=== PATIENT | female | born 1965 | race Caucasian/White ===

== ENCOUNTER 2017-06-15 20:59 | Inpatient (IN) | payer OTHER ==
[~2017-06-15] VITALS: Ht 165.1 cm; Wt 150.0 kg
[~2017-06-15 20:59] MED LIST: ADV25050 INHALATION; ALBU18HF INHALATION; AMLO-147 PO; CHOL100016 PO; ENOX30DI2 SC; GABA300C16 PO; HYDR25TA6 PO; HYDR2TAB3 PO; LANT3I SC; LISI40TA9 PO; LORA-444 PO; MECL-77 PO; NOVO3I SC; OMEG-135 PO; OMEP20CA16 PO; PANT40TA4 PO; SITA50TA2 PO; TAMS0.4C2 PO; ZOLP10TA5 PO
[2017-06-15] MEDS ORDERED: ONDANSETRON 4 MG INJ IV STA (21:37)
[2017-06-15] MEDS ORDERED: SOD CHLORIDE 0.9% 1,000 ML IV STA (21:37)
--- NOTE | 2017-06-15 22:01 | RADRPT ---
PROCEDURE: XR Chest. CLINICAL INDICATION: Chest pain TECHNIQUE: Single AP portable chest. COMPARISON: 02/19/2016 Chest x-ray FINDINGS: The cardiomediastinal silhouette is within normal limits of size. Anterior and posterior cervical fu queenie. Chronic elevation right hemidiaphragm. Atherosclerotic calcification of the aorta. The lungs are clear without pleural effusion or focal consolidation. No pneumothorax. The osseous structures and soft tissues are unremarkable. IMPRESSION: 1. No evidence for active cardiopulmonary disease. RPTAT:AAJJ Asif Yeung Physician Date Time Electronically viewed and signed by Physician Huey on 06/15/2017 22:01 GABBI/
[2017-06-15 22:26] LABS: ABNORMAL IP MESSAGE 1; BASOPHILS % 0.3 % (0.0-2.0); EOSINOPHILS # 0.1 10^3/ul (0.0-0.5); EOSINOPHILS % 0.4 % (0.0-7.0); HEMATOCRIT 29.5 % (37.0-47.0); HEMOGLOBIN 9.1 g/dl (12.0-16.0); LYMPHOCYTES # 0.6 10^3/ul (0.8-2.9); MEAN CORPUSCULAR HEMOGLOBIN 25.2 pg (29.0-33.0); MEAN CORPUSCULAR HGB CONC 30.8 g/dl (32.0-37.0); MEAN CORPUSCULAR VOLUME 81.7 fl (82.0-101.0); MEAN PLATELET VOLUME 8.4 fl (7.4-10.4); MONOCYTE # 0.4 10^3/ul (0.3-0.9); MONOCYTES % 3.4 % (0.0-11.0); NEUTROPHILS % 90.1 % (39.0-77.0); PLATELET COUNT 289 10^3/UL (140-415); RED BLOOD COUNT 3.61 10^6/ul (4.20-5.40); WHITE BLOOD COUNT 11.1 10^3/ul (4.8-10.8)
[2017-06-15 22:27] LABS: POSITIVE DIFF @See below
[2017-06-15 22:47] LABS: ALANINE AMINOTRANSFERASE 29 IU/L (13-69); ALBUMIN/GLOBULIN RATIO 1.11; ALKALINE PHOSPHATASE 82 IU/L (42-121); ANION GAP 16 (8-16); ASPARTATE AMINO TRANSFERASE 23 IU/L (15-46); BILIRUBIN,INDIRECT 0.1 mg/dl (0-1.1); BILIRUBIN,TOTAL 0.1 mg/dl (0.2-1.3); BLOOD UREA NITROGEN 17 mg/dl (7-20); CALCIUM 9.3 mg/dl (8.4-10.2); CARBON DIOXIDE 29 mmol/L (21-31); CHLORIDE 96 mmol/L (97-110); CREATININE 0.83 mg/dl (0.44-1.00); GLUCOSE 194 mg/dl (70-220); POTASSIUM 4.4 mmol/L (3.5-5.1); SODIUM 137 mmol/L (135-144); TOTAL PROTEIN 7.6 g/dl (6.1-8.1)
[2017-06-15 22:59] LABS: B-TYPE NATRIURETIC PEPTIDE 1250 PG/ML (0-125); TROPONIN-I < 0.012 ng/ml (0.00-0.12)
--- NOTE | 2017-06-15 23:21 | ERD ---
ER Documentation Chief Complaint Chief Complaint bib self, cc: "i stopped taking dilaudid yesterday, I want to vomit, CP" HPI This is a 52-year-old female with a chief complaint of chest pain. The patient states that she has had chest pain for the past 5 hours and localizes it to the center of her chest and describes as a pressure-like sensation with mild shortness of breath. She denies any radiation of the pain, and states that she came to the ER for evaluation. The patient states "I was at another hospital last week but I do not know what hospital it was and I do not know why it was there" as patient is a very poor historian ROS All systems reviewed and are negative except as per history of present illness. Medications Home Meds Active Scripts Pantoprazole* (Pantoprazole*) 40 Mg Tablet.dr, 40 MG PO DAILY@06 for 30 Days Prov:DELMI JOSEPH NP 02/20/16 Insulin Glargine* (Lantus*) 100 Unit/Ml Soln, 15 UNIT SC QHS for 30 Days Prov:DELMI JOSEPH NP 02/20/16 Enoxaparin Sodium* (Enoxaparin Sodium*) 30 Mg/0.3 Ml Syringe, 30 MG SC DAILY for 30 Days Prov:DELMI JOSEPH NP 02/20/16 Insulin Aspart* (Novolog Insulin Pen*) 100 Unit/Ml Soln, 0 UNIT SC WITH MEALS BEDTIME for 30 Days Prov:PATRICIA JUARES 02/17/16 Albuterol Sulfate* (Ventolin HFA*) 18 Gm Hfa.aer.ad, 2 PUFF INHALATION Q4H, #1 INHALER Prov:GUICHO SHEIKH 02/15/16 Reported Medications Salmeterol Xinaf/Fluticasone* (Advair*) 250-50 Diskus Inhaler, 1 INH INHALATION BID, #1 INHALER 02/15/16 Lorazepam* (Ativan*) 2 Mg Tablet, 4 MG PO HS Y for SIZUR, #60 TAB 02/15/16 Zolpidem Tartrate* (Zolpidem Tartrate*) 10 Mg Tablet, 10 MG PO QHS Y for INSOMNIA, #30 TAB 02/15/16 Hydrochlorothiazide* (Hydrochlorothiazide*) 25 Mg Tab, 25 MG PO DAILY, #30 TAB 02/15/16 Fish Oil* (Fish Oil*) 1,000 Mg Cap, 3000 MG PO DAILY, CAP 02/15/16 Gabapentin* (Gabapentin*) 300 Mg Capsule, 900 MG PO TID, #270 CAP 02/14/16 Tamsulosin Hcl* (Tamsulosin Hcl*) 0.4 Mg Cap.er.24h, 0.4 MG PO DAILY, CAP 02/14/16 Lisinopril* (Lisinopril*) 40 Mg Tablet, 40 MG PO DAILY, #30 TAB 02/14/16 Sitagliptin* (Januvia*) 50 Mg Tablet, 50 MG PO DAILY, #30 TAB 02/14/16 Meclizine Hcl* (Meclizine Hcl*) 25 Mg Tablet, 25 MG PO BID Y for DIZZINESS, TAB 02/14/16 Omeprazole* (Omeprazole*) 20 Mg Capsule.dr, 20 MG PO DAILY, #30 CAP 02/14/16 Amlodipine Besylate* (Amlodipine Besylate*) 10 Mg Tablet, 10 MG PO DAILY, #30 TAB 02/14/16 Cholecalciferol (Vitamin D3) 1,000 Unit Capsule, 1000 UNIT PO DAILY, CAP 02/14/16 Hydromorphone Hcl* (Hydromorphone Hcl*) 2 Mg Tablet, 2 MG PO BID Y for PAIN, TAB 02/14/16 Allergies Allergies: Coded Allergies: diphenhydramine (Unverified Allergy, Mild, 02/17/16) PMhx/Soc History of Surgery: Yes (cervical sx,cholecystectomy,ovarian cyst removal) Anesthesia Reaction: No Hx Neurological Disorder: Yes (NEUROPATHY;) Hx Respiratory Disorders: Yes (PER PT SOME PULMONARY BLOCAGE;SLEEP APNEA;) Hx Cardiac Disorders: Yes (HTN;) Hx Psychiatric Problems: No Hx Miscellaneous Medical Probl: No Hx Alcohol Use: No Hx Substance Use: No Hx Tobacco Use: No Physical Exam Vitals Vital Signs Date Time Temp Pulse Resp B/P Pulse Ox O2 Delivery O2 Flow Rate FiO2 06/15/17 21:06 98.5 102 18 174/83 94 Physical Exam Const: No acute distress, morbidly obese Head: Atraumatic Eyes: Normal Conjunctiva ENT: Normal External Ears, Nose and Mouth. Neck: Full range of motion..~ No meningismus. Resp: Clear to auscultation bilaterally Cardio: Regular rate and rhythm, no murmurs Abd: Soft, non tender, non distended. Normal bowel sounds Skin: No petechiae or rashes Back: No midline or flank tenderness Ext: No cyanosis, or edema Neur: Awake and alert Psych: Mild agitation Result Diagram: 06/15/17221606/15/172216 Results 24 hrs Laboratory Tests Test 06/15/17 22:17 White Blood Count 11.110^3/ul Red Blood Count 3.6110^6/ul Hemoglobin 9.1g/dl Hematocrit 29.5% Mean Corpuscular Volume 81.7fl Mean Corpuscular Hemoglobin 25.2pg Mean Corpuscular Hemoglobin Concent 30.8g/dl Red Cell Distribution Width 16.0% Platelet Count 33528^3/UL Mean Platelet Volume 8.4fl Neutrophils % 90.1% Lymphocytes % 5.0% Monocytes % 3.4% Eosinophils % 0.4% Basophils % 0.3% Nucleated Red Blood Cells % 0.0/100WBC Neutrophils # 10.010^3/ul Lymphocytes # 0.610^3/ul Monocytes # 0.410^3/ul Eosinophils # 0.110^3/ul Basophils # 0.010^3/ul Nucleated Red Blood Cells # 0.010^3/ul Sodium Level 137mmol/L Potassium Level 4.4mmol/L Chloride Level 96mmol/L Carbon Dioxide Level 29mmol/L Anion Gap 16 Blood Urea Nitrogen 17mg/dl Creatinine 0.83mg/dl Glucose Level 194mg/dl Calcium Level 9.3mg/dl Total Bilirubin 0.1mg/dl Direct Bilirubin 0.00mg/dl Indirect Bilirubin 0.1mg/dl Aspartate Amino Transf (AST/SGOT) 23IU/L Alanine Aminotransferase (ALT/SGPT) 29IU/L Alkaline Phosphatase 82IU/L Troponin I < 0.012ng/ml B-Type Natriuretic Peptide 1250PG/ML Total Protein 7.6g/dl Albumin 4.0g/dl Globulin 3.60g/dl Albumin/Globulin Ratio 1.11 Current Medications Medications (Trade) Dose Ordered Sig/Kaz Route PRN Reason Start Time Stop Time Status Last Admin Dose Admin Sodium Chloride (NS) 1,000 ml @ 1,000 mls/hr Q1H STAT IV 06/15/17 21:37 06/15/17 22:36 DC 06/15/17 21:55 Ondansetron HCl (Zofran Inj) 4 mg ONCE STAT IV 06/15/17 21:37 06/15/17 21:38 DC 06/15/17 21:53 Procedures/MDM EKG: Rate/Rhythm: [Normal Sinus Rhythm] QRS, ST, T-waves: [No changes consistent w/ acute ischemia] Impression: [No evidence of ischemia or arrhythmia] Chest X-ray 1V Interpreted by me: Soft Tissue: No acute abnormalities Bones: No acute abnormalities Mediastinum/Cardiac Silhouette/Lungs: [No acute abnormalities] This is a 52-year-old female with a history of morbid obesity, hypertension, polycystic ovarian syndrome, diastolic heart failure who presents to the emergency room for evaluation of chest pain and shortness of breath. This patient does state that she was at a another facility but cannot tell me what facility she was at, or why she was given Ativan in the hospital. She is an extremely poor historian and the majority of the past medical history is obtained from previous medical records. When I examined this patient I did note a morbidly obese female, in no acute distress however she was complaining of chest pain. This patient states that she does not know when her last stress test was but "thinks it has been over a year". This patient did have lab work drawn and first troponin is negative, her first EKG is nonischemic however given her age and multiple comorbidities this patient will be placed in for admission. Departure Diagnosis: Primary Impression: Chest pain Additional Impressions: Microcytic anemia PCOS (polycystic ovarian syndrome) Elevated brain natriuretic peptide (BNP) level Condition: SPEEDY Pederson DO Jun 15, 2017 23:21
[2017-06-16] VITALS (12 sets, daily range): BP systolic 138–175; BP diastolic 60–74; PULSE 70–89; RESP 18–21; TEMP 98.2; Ht 165.1 cm; Wt 150.0 kg
[2017-06-16] MEDS ORDERED: ACETAMINOPHEN 325 MG TAB PO PRN
[2017-06-16] MEDS ORDERED: ONDANSETRON 4 MG INJ IV PRN
[2017-06-16] MEDS ORDERED: MECLIZINE 25 MG TAB PO PRN (01:30)
[2017-06-16] MEDS ORDERED: ONDANSETRON 4 MG TAB PO PRN (01:30)
[2017-06-16] MEDS ORDERED: NACL 0.9% 3 ML SYG IV SCH (01:30)
[2017-06-16] MEDS ORDERED: DOCUSATE SODIUM 100 MG CAP PO PRN (01:30)
[2017-06-16] MEDS ORDERED: GLUCAGON 1 MG INJ IM PRN (02:30)
[2017-06-16] MEDS ORDERED: DEXTROSE 50% 50 ML SYRINGE IV PRN ×2 (02:30)
[2017-06-16] MEDS ORDERED: GLUCOSE GEL 15 GRAM TUBE PO PRN ×2 (02:30)
[2017-06-16] MEDS ORDERED: GLUCOSE GEL 15 GRAM TUBE BUCCAL PRN (02:30)
[2017-06-16] MEDS ORDERED: KETOROLAC 15 MG INJ IV PRN ×3 (03:54→15:54)
[2017-06-16] MEDS: SALMETEROL/FLUTICASONE 250/50 INHA INH SCH ×3 (04:08→20:56)
[2017-06-16 04:23] LABS: D-DIMER 2033.2 ng/ml (<460)
[2017-06-16 04:31] LABS: CREATINE KINASE 206 IU/L (23-200)
[2017-06-16 04:47] LABS: CHOL/HDL RATIO 2.2 RATIO
[2017-06-16 04:56] LABS: TROPONIN-I < 0.012 ng/ml (0.00-0.12)
[2017-06-16] MEDS: PANTOPRAZOLE (EC) 40 MG TAB PO SCH (06:03)
[2017-06-16] MEDS: ASPIRIN 81 MG TAB PO SCH (08:27)
[2017-06-16] MEDS: HYDROCHLOROTHIAZIDE 25 MG TAB PO SCH (08:27)
[2017-06-16] MEDS: CHOLECALCIFEROL 1,000 UNIT TAB PO SCH (08:27)
[2017-06-16] MEDS: LINAGLIPTIN 5 MG TABLET PO SCH (08:28)
[2017-06-16] MEDS: TAMSULOSIN (SR) 0.4 MG CAP PO SCH (08:28)
[2017-06-16] MEDS: GABAPENTIN 300 MG CAP PO SCH ×3 (08:28→20:56)
[2017-06-16] MEDS: AMLODIPINE 10 MG TAB PO SCH (08:28)
[2017-06-16] MEDS: LISINOPRIL 20 MG TAB PO SCH (08:34)
[2017-06-16] MEDS: LORAZEPAM 0.5 MG TAB PO PRN ×2 (08:34→18:48)
[2017-06-16] MEDS: ENOXAPARIN 30 MG/0.3 ML SYG SC SCH (08:39)
--- NOTE | 2017-06-16 11:14 | HP ---
Date/Time of Note Date/Time of Note DATE: 06/16/17 TIME: 11:14 Assessment/Plan VTE Prophylaxis VTE Prophylaxis Intervention: LMWH Lines/Catheters [facility] Assessment/Plan Assessment/Plan [facility] 1. 52yo woman with previous presentations for chest pain, presented last night with left chest pain that is largely reproduced with palpation of the left chest wall. 2. She is fearful of returning to her mother's home in [place], and seemed mostly concerned about her immediate housing situation. 3. H/o polycystic ovary disease 4. Chronic pain 5. Type 2 diabetes, on linagliptin and Lantus insulin 6. Hypochromic, microcytic anemia, with Hct 29%. 7. Elevated ESR at 70mm/hr, with associated elevation in D-dimer >2200. Elevated D-dimer (an acute phase reactant) has a low positive predictive value for DVT/PE in someone with a moderately elevated ESR like this. No focus of infection to explain her ESR elevation. Does not appear up-to-date with regard to cancer screening. 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 ROS No headache, but she had ongoing chest pain, lightheadedness when sitting up, but no nausea, abdominal pain, loose stooling, dysuria or urethritis symptoms. PMH/Family/Social Past Medical History Medical History: diabetes, other (polycystic ovary) Past Surgical History Past Surgical Hx: cholecystectomy, other (cervical spine, ovarian cyst) Social History Disabled, lived with someone named Jermaine (possibly her brother). Also with her mother. Conflicted situation. Smoking Status: Never smoker Exam/Review of Systems Vital Signs Vitals Vital Signs Date Time Temp Pulse Resp B/P Pulse Ox O2 Delivery O2 Flow Rate FiO2 06/16/17 08:30 Nasal Cannula 2.0 06/16/17 08:15 98.4 91 18 152/74 95 Intake and Output 06/15/17 06/15/17 06/16/17 15:00 23:00 07:00 Intake Total 50 ml Balance 50 ml Exam Constitutional: alert, distress, other (Mildly disoriented), well developed Psych: anxiety, confusion, depression Head: atraumatic, normocephalic Eyes: EOMI, PERRL, nl conjunctiva ENMT: mucosa pink and moist Neck: non-tender, supple, No bruits, No masses, No nuchal rigidity, No thyromegaly Respiratory: clear to auscultation, normal air movement, other (Moderate focal left upper parasternal tenderness), No congested cough, No crackles/rales, No diminished breath sounds, No intercostal retraction, No labored breathing, No wheezing Cardiovascular: nl pulses, other, regular rate and rhythm, No bruits, No diastolic murmur, No edema, No gallop, No irregular rhythm, No jugular venous distention (JVD), No murmurs/extra sounds, No rub, No systolic murmur Gastrointestinal: bowel sounds, nl liver, spleen, non-tender, soft, No ascites, No distended, No firm, No hepatomegaly, No mass, No rebound or guarding, No splenomegaly, No tender Genitourinary - Female: No CVA tenderness Musculoskeletal: muscle tone, nl extremities to inspection, range of motion, No joint tenderness, No muscle weakness, No nl gait and stance, No spine non- tender, No swelling Extremities: normal pulses, No calf tenderness, No clubbing, No cyanosis, No edema, No palpable cord, No pitting pedal edema, No tenderness Neurological: WIRELESS SALES EXPERT II-XII intact, DTR's symmetric, confused, nl mental status, nl speech, nl strength Skin: nl turgor, No diaphoresis, No ecchymosis, No laceration, No puncture, No rash or lesions Lymph: nl lymph nodes Labs Result Diagram: 06/15/17221606/15/172216 Medications Medications Current Medications Amlodipine Besylate (Norvasc) 10 mg DAILY PO Last administered on 06/16/17t 08 :28; Admin Dose 10 MG; Start 06/16/17 at 09:00 Cholecalciferol (Vitamin D) 1,000 unit DAILY PO Last administered on 08:27; Admin Dose 1,000 UNIT; Start 06/16/17 at 09:00 Enoxaparin Sodium (Lovenox) 30 mg DAILY SC Last administered on 06/16/17 08: 39; Admin Dose 30 MG; Start 06/16/17 at 09:00 Gabapentin (Neurontin) 900 mg TID PO Last administered on 06/16/17 08:28; Admin Dose 900 MG; Start 06/16/17 at 09:00 Hydrochlorothiazide (Hydrochlorothiazide) 25 mg DAILY PO Last administered on 06/16/17 08:27; Admin Dose 25 MG; Start 06/16/17 at 09:00 Insulin Glargine (Lantus) 15 unit QHS SC ; Start 06/16/17 at 21:00 Lisinopril (Zestril) 40 mg DAILY PO Last administered on 06/16/17 08:34; Admin Dose 40 MG; Start 06/16/17 at 09:00 Meclizine HCl (Antivert) 25 mg BID PRN PO DIZZINESS; Start 06/16/17 at 01:30 Pantoprazole (Protonix Tab) 40 mg DAILY@06 PO Last administered on 06/16/17 06:03; Admin Dose 40 MG; Start 06/16/17 at 06:00 Salmeterol Xinafoate/ Fluticasone (Advair 250/50 Diskus) 1 inh BID INH Last administered on 06/16/17 08:26; Admin Dose 1 INH; Start 06/16/17 at 01:30 Tamsulosin HCl (Flomax) 0.4 mg DAILY PO Last administered on 06/16/17 08:28; Admin Dose 0.4 MG; Start 06/16/17 at 09:00 Zolpidem Tartrate (Ambien) 10 mg QHS PRN PO INSOMNIA; Start 06/16/17 at 01:30 Linagliptin (Tradjenta) 5 mg DAILY PO Last administered on 06/16/17 08:28; Admin Dose 5 MG; Start 06/16/17 at 09:00 Miscellaneous Information 1 ea NOTE XX ; Start 06/16/17 at 02:30 Glucose (Glutose) 15 gm Q15M PRN PO DECREASED GLUCOSE; Start 06/16/17 at 02:30 Glucose (Glutose) 22.5 gm Q15M PRN PO DECREASED GLUCOSE; Start 06/16/17 at 02: 30 Dextrose (D50w Syringe) 25 ml Q15M PRN IV DECREASED GLUCOSE; Start 06/16/17 at 02:30 Dextrose (D50w Syringe) 50 ml Q15M PRN IV DECREASED GLUCOSE; Start 06/16/17 at 02:30 Glucagon (Glucagen) 1 mg Q15M PRN IM DECREASED GLUCOSE; Start 06/16/17 at 02: 30 Glucose (Glutose) 15 gm Q15M PRN BUCCAL DECREASED GLUCOSE; Start 06/16/17 at 02:30 Lorazepam (Ativan) 0.5 mg Q8H PRN PO ANXIETY Last administered on 06/16/17 08 :34; Admin Dose 0.5 MG; Start 06/16/17 at 01:30 Ondansetron HCl (Zofran Tab) 4 mg Q6H PRN PO NAUSEA AND/OR VOMITING; Start at 01:30 Aspirin (Aspirin) 81 mg DAILY PO Last administered on 06/16/17 08:27; Admin Dose 81 MG; Start 06/16/17 at 09:00 Docusate Sodium (Colace) 100 mg Q12H PRN PO CONSTIPATION; Start 06/16/17 at 01 :30 Ketorolac Tromethamine (Toradol) 30 mg Q12H PRN IV PAIN Last administered on 04:10; Admin Dose 30 MG; Start 06/16/17 at 03:54; Stop 06/19/17 at 03 :53 Influenza Virus Vaccine (Fluzone) 0.5 ml ONCE ONCE IM* ; Start 06/17/17 at 09: 00; Stop 06/17/17 at 09:01 ANNETTE DAVIDSON M.D. Jun 16, 2017 11:14
[2017-06-16 11:24] LABS: CREATINE KINASE 141 IU/L (23-200)
[2017-06-16 11:37] LABS: CK-MB 1.56 ng/ml (0.0-2.4)
[2017-06-16] MEDS ORDERED: Discontinue current oral sulfonylureas (glyburide, glipizide, and/or glimepiride) prior to XX ONE (12:00)
[2017-06-16] MEDS ORDERED: [UNRECOGNIZED DRUG - REMARK] XX ONE (12:00)
[2017-06-16] MEDS ORDERED: HYPOGLYCEMIA PROTOCOL when Glucose is <70 mg/dL or symptomatic <90 mg/dL. XX ONE (12:00)
[2017-06-16 12:04] LABS: TROPONIN-I < 0.012 ng/ml (0.00-0.12)
[2017-06-16] MEDS: KETOROLAC 30 MG INJ IV PRN ×2 (14:55→21:11)
[2017-06-16] MEDS: INSULIN GLARGINE [LANtus] 3 ML PEN SC SCH (20:50)
[2017-06-16] MEDS: ZOLPIDEM 5 MG TAB PO PRN (20:56)
[2017-06-17] VITALS (12 sets, daily range): BP systolic 124–165; BP diastolic 59–74; PULSE 65–87; RESP 19–20
[2017-06-17] MEDS ORDERED: ACCU-CHEK XX SCH (02:00)
[2017-06-17] MEDS: LORAZEPAM 0.5 MG TAB PO PRN (03:08)
[2017-06-17] MEDS: KETOROLAC 30 MG INJ IV PRN ×3 (03:08→19:16)
[2017-06-17] MEDS: PANTOPRAZOLE (EC) 40 MG TAB PO SCH (06:23)
[2017-06-17 08:56] LABS: BASOPHILS % 0.3 % (0.0-2.0); EOSINOPHILS # 0.3 10^3/ul (0.0-0.5); EOSINOPHILS % 2.9 % (0.0-7.0); HEMATOCRIT 24.3 % (37.0-47.0); HEMOGLOBIN 7.4 g/dl (12.0-16.0); LYMPHOCYTES # 1.6 10^3/ul (0.8-2.9); LYMPHOCYTES % 16.6 % (15.0-51.0); MEAN CORPUSCULAR HGB CONC 30.5 g/dl (32.0-37.0); MEAN CORPUSCULAR VOLUME 82.1 fl (82.0-101.0); MEAN PLATELET VOLUME 9.5 fl (7.4-10.4); MONOCYTE # 0.6 10^3/ul (0.3-0.9); MONOCYTES % 6.5 % (0.0-11.0); NEUTROPHIL # 6.9 10^3/ul (1.6-7.5); PLATELET COUNT 259 10^3/UL (140-415); RED BLOOD COUNT 2.96 10^6/ul (4.20-5.40); RED CELL DISTRIBUTION WIDTH 16.5 % (11.5-14.5); WHITE BLOOD COUNT 9.5 10^3/ul (4.8-10.8)
[2017-06-17] MEDS ORDERED: INFLUENZA VIRUS VACCINE 0.5 ML (DISPENSING) IM* ONE (09:00)
[2017-06-17] MEDS: ENOXAPARIN 30 MG/0.3 ML SYG SC SCH (09:24)
[2017-06-17] MEDS: SALMETEROL/FLUTICASONE 250/50 INHA INH SCH ×2 (09:24→21:36)
[2017-06-17] MEDS: ASPIRIN 81 MG TAB PO SCH (09:24)
[2017-06-17] MEDS: CHOLECALCIFEROL 1,000 UNIT TAB PO SCH (09:24)
[2017-06-17] MEDS: GABAPENTIN 300 MG CAP PO SCH ×3 (09:24→21:37)
[2017-06-17] MEDS: LISINOPRIL 20 MG TAB PO SCH (09:25)
[2017-06-17] MEDS: HYDROCHLOROTHIAZIDE 25 MG TAB PO SCH (09:25)
[2017-06-17] MEDS: TAMSULOSIN (SR) 0.4 MG CAP PO SCH (09:26)
[2017-06-17] MEDS: LINAGLIPTIN 5 MG TABLET PO SCH (09:26)
[2017-06-17] MEDS: AMLODIPINE 10 MG TAB PO SCH (09:26)
[2017-06-17 10:02] LABS: CALCIUM 8.5 mg/dl (8.4-10.2); CREATININE 0.92 mg/dl (0.44-1.00); POTASSIUM 3.9 mmol/L (3.5-5.1)
[2017-06-17] MEDS ORDERED: NITROGLYCERIN (SL) 0.4 MG TAB ONE (12:46)
[2017-06-17] MEDS ORDERED: IBUPROFEN 800 MG TAB PO ONE (13:30)
--- NOTE | 2017-06-17 17:51 | PN ---
Date/Time of Note Date/Time of Note DATE: 06/17/17 TIME: 17:26 Assessment/Plan VTE Prophylaxis VTE Prophylaxis Intervention: LMWH Lines/Catheters IV Catheter Type (from Nrsg): Saline Lock Assessment/Plan Assessment/Plan 52 yo woman with: 1. Atypical chest pain, presented last night with left chest pain that is largely reproduced with palpation of the left chest wall. Elevated D dimer, will check CTA chest and symptomatic treatment of pain Patient has been to multiple hospitals for similar complaints, No need for further cardiac work up 2. Chronic pain and reported right tib/fib fracture 3 months ago, patient was on Dilaudid po prn at one point ... Trial of NSAIDs and [place] prn Repeat RLE XR given falls 3. Type 2 diabetes, on linagliptin and Lantus, continue current meds, SSI as needed 4. Hypochromic, microcytic anemia, chronic and FOB negative, Hb 7.4 today, check Iron panel, ferritin and repeat H/H and transfuse prn 5. Hypertension: continue home meds 6. Hyperlipidemia: on Fish oil 7. Morbid Obesity Prophylaxis: Lovenox for DVT ppx and continue PPI for GI ppx Disposition: CTA chest and RLE XR, d/c plan to SNF tomorrow per patient request Subjective 24 Hr Interval Summary Free Text/Dictation Patient with ongoing atypical chest pain Will get chest CTA chest based on elevated D-Dimer and reported sedentary for the past 3 month due to RLE fracture s/p cast Exam/Review of Systems Vital Signs Vitals Vital Signs Date Time Temp Pulse Resp B/P Pulse Ox O2 Delivery O2 Flow Rate FiO2 06/17/17 16:00 80 06/17/17 15:36 98.5 20 148/74 100 06/17/17 08:20 Nasal Cannula 2.0 Intake and Output 06/16/17 06/16/17 06/17/17 15:00 23:00 07:00 Intake Total 600 ml 500 ml Balance 600 ml 500 ml Exam Constitutional: alert, obese (morbid ), oriented, well developed Respiratory: clear to auscultation, normal air movement Cardiovascular: nl pulses, regular rate and rhythm Gastrointestinal: non-tender, soft Musculoskeletal: nl extremities to inspection Extremities: normal pulses, other (no edema, clubbing or cyanosis ) 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, nl mental status, nl speech, nl strength Results Result Diagram: 06/17/17 0729 06/17/17 0729 Results 24 hrs Laboratory Tests Test 06/16/17 17:27 06/16/17 20:48 06/17/17 03:09 06/17/17 07:29 Bedside Glucose 170 196 138 White Blood Count 9.5 Red Blood Count 2.96 L Hemoglobin 7.4 L Hematocrit 24.3 L Mean Corpuscular Volume 82.1 Mean Corpuscular Hemoglobin 25.0 L Mean Corpuscular Hemoglobin Concent 30.5 L Red Cell Distribution Width 16.5 H Platelet Count 259 Mean Platelet Volume 9.5 Neutrophils % 73.0 Lymphocytes % 16.6 Monocytes % 6.5 Eosinophils % 2.9 Basophils % 0.3 Nucleated Red Blood Cells % 0.0 Neutrophils # 6.9 Lymphocytes # 1.6 Monocytes # 0.6 Eosinophils # 0.3 Basophils # 0.0 Nucleated Red Blood Cells # 0.0 Sodium Level 138 Potassium Level 3.9 Chloride Level 100 Carbon Dioxide Level 28 Anion Gap 14 Blood Urea Nitrogen 9 Creatinine 0.92 Glucose Level 104 # Calcium Level 8.5 Test 06/17/17 08:18 06/17/17 11:57 06/17/17 14:14 06/17/17 17:03 Bedside Glucose 120 154 179 Stool Occult Blood NEGATIVE Medications Medications Current Medications Amlodipine Besylate (Norvasc) 10 mg DAILY PO Last administered on 06/17/17 09 :26; Admin Dose 10 MG; Start 06/16/17 at 09:00 Cholecalciferol (Vitamin D) 1,000 unit DAILY PO Last administered on 09:24; Admin Dose 1,000 UNIT; Start 06/16/17 at 09:00 Enoxaparin Sodium (Lovenox) 30 mg DAILY SC Last administered on 06/17/17 09: 24; Admin Dose 30 MG; Start 06/16/17 at 09:00 Gabapentin (Neurontin) 900 mg TID PO Last administered on 06/17/17 14:04; Admin Dose 900 MG; Start 06/16/17 at 09:00 Hydrochlorothiazide (Hydrochlorothiazide) 25 mg DAILY PO Last administered on 06/17/17 09:25; Admin Dose 25 MG; Start 06/16/17 at 09:00 Insulin Glargine (Lantus) 15 unit QHS SC Last administered on 06/16/17 20:50 ; Admin Dose 15 UNIT; Start 06/16/17 at 21:00 Lisinopril (Zestril) 40 mg DAILY PO Last administered on 06/17/17 09:25; Admin Dose 40 MG; Start 06/16/17 at 09:00 Meclizine HCl (Antivert) 25 mg BID PRN PO DIZZINESS; Start 06/16/17 at 01:30 Pantoprazole (Protonix Tab) 40 mg DAILY@06 PO Last administered on 06/17/17 06:23; Admin Dose 40 MG; Start 06/16/17 at 06:00 Salmeterol Xinafoate/ Fluticasone (Advair 250/50 Diskus) 1 inh BID INH Last administered on 06/17/17 09:24; Admin Dose 1 INH; Start 06/16/17 at 01:30 Tamsulosin HCl (Flomax) 0.4 mg DAILY PO Last administered on 06/17/17 09:26; Admin Dose 0.4 MG; Start 06/16/17 at 09:00 Zolpidem Tartrate (Ambien) 10 mg QHS PRN PO INSOMNIA Last administered on 06/16 20:56; Admin Dose 10 MG; Start 06/16/17 at 01:30 Linagliptin (Tradjenta) 5 mg DAILY PO Last administered on 06/17/17 09:26; Admin Dose 5 MG; Start 06/16/17 at 09:00 Miscellaneous Information 1 ea NOTE XX ; Start 06/16/17 at 02:30 Glucose (Glutose) 15 gm Q15M PRN PO DECREASED GLUCOSE; Start 06/16/17 at 02:30 Glucose (Glutose) 22.5 gm Q15M PRN PO DECREASED GLUCOSE; Start 06/16/17 at 02: 30 Dextrose (D50w Syringe) 25 ml Q15M PRN IV DECREASED GLUCOSE; Start 06/16/17 at 02:30 Dextrose (D50w Syringe) 50 ml Q15M PRN IV DECREASED GLUCOSE; Start 06/16/17 at 02:30 Glucagon (Glucagen) 1 mg Q15M PRN IM DECREASED GLUCOSE; Start 06/16/17 at 02: 30 Glucose (Glutose) 15 gm Q15M PRN BUCCAL DECREASED GLUCOSE; Start 10/22/17 at 02:30 Lorazepam (Ativan) 0.5 mg Q8H PRN PO ANXIETY Last administered on 06/17/17 03 :08; Admin Dose 0.5 MG; Start 06/16/17 at 01:30 Ondansetron HCl (Zofran Tab) 4 mg Q6H PRN PO NAUSEA AND/OR VOMITING; Start at 01:30 Aspirin (Aspirin) 81 mg DAILY PO Last administered on 06/17/17 09:24; Admin Dose 81 MG; Start 06/16/17 at 09:00 Docusate Sodium (Colace) 100 mg Q12H PRN PO CONSTIPATION; Start 06/16/17 at 01 :30 Diagnostic Test (Pha) (Accu-Chek) 1 ea 02 XX Last administered on 06/17/17 02 :00; Admin Dose 1 EA; Start 06/17/17 at 02:00 Ketorolac Tromethamine (Toradol) 30 mg Q6H PRN IV PAIN Last administered on 09:25; Admin Dose 30 MG; Start 06/16/17 at 15:00; Stop 06/19/17 at 14: 59 MERCED PALMER Jun 17, 2017 17:42
[2017-06-17 18:02] LABS: HEMATOCRIT 24.6 % (37.0-47.0); HEMOGLOBIN 7.5 g/dl (12.0-16.0)
[2017-06-17] MEDS ORDERED: SOD CHLORIDE 0.9% 250 ML IV* ONE (18:26)
[2017-06-17] MEDS ORDERED: HYDROCODONE/APAP (10/325) TAB PO PRN (18:30)
[2017-06-17 19:30] LABS: IRON 27 ug/dl (35-150)
[2017-06-17 19:40] LABS: TOTAL IRON BINDING CAPACITY 297 ug/dl (241-421)
[2017-06-17] MEDS ORDERED: NITROGLYCERIN (SL) 0.4 MG TAB SL PRN (20:00)
[2017-06-17 20:07] LABS: FERRITIN 42.7 ng/ml (11.1-264.0)
[2017-06-17 20:37] LABS: FOLATE 12.2 ng/ml (2.8-20.0)
[2017-06-17] MEDS: FERROUS SULFATE (EC) 325 MG TAB PO SCH (21:00)
--- NOTE | 2017-06-17 21:30 | RADRPT ---
PROCEDURE: XR Tibia and Fibula. CLINICAL INDICATION: Fall. Possible new fracture. History of fracture TECHNIQUE: AP and lateral of the right tibia and fibula were obtained. COMPARISON: None available FINDINGS: There is normal mineralization and alignment. Callus formation about an almost completely radiograph ically healed spiral fracture of the proximal fibula diaphysis is present. There is no evidence of n ew fracture. Multiple ovoid calcifications anterior to the tibia are likely vascular and phleboliths . No subcutaneous gas is seen. RPTAT:HJJR IMPRESSION: Callus formation about an old, almost completely healed, nondisplaced spiral fracture of the proxima l right fibula diaphysis without evidence of acute fracture involving the right tibia or fibula. Physician Megan Date Time Electronically viewed and signed by Physician Megan on 06/17/2017 21:30 /
[2017-06-17] MEDS: INSULIN GLARGINE [LANtus] 3 ML PEN SC SCH (21:39)
[2017-06-17] MEDS: INSULIN ASPART [NOVOLOG] 3 ML PEN SC SCH (21:40)
[2017-06-17] MEDS ORDERED: IOHEXOL 350MG/ML 50 ML BTL ONE (22:23)
[2017-06-17] MEDS ORDERED: IOHEXOL 100 ML ONE (22:23)
[2017-06-17] MEDS ORDERED: SOD CHLORIDE 0.9% 100 ML ONE (22:23)
[2017-06-17] MEDS: ZOLPIDEM 5 MG TAB PO PRN (23:18)
[2017-06-18] VITALS (11 sets, daily range): BP systolic 100–167; BP diastolic 61–79; PULSE 62–94; RESP 19–20
[2017-06-18] MEDS: LORAZEPAM 0.5 MG TAB PO PRN (01:24)
[2017-06-18] MEDS: KETOROLAC 30 MG INJ IV PRN ×3 (01:24→13:29)
[2017-06-18] MEDS ORDERED: ACCU-CHEK XX SCH (02:00)
--- NOTE | 2017-06-18 03:05 | RADRPT ---
PROCEDURE: CTA Chest CLINICAL INDICATION: Chest pain. Suspected pulmonary embolus. TECHNIQUE: Thin section spiral CT images were obtained through the vasculature of the chest during administration of 125 cc of Omnipaque 350 contrast material. Multiplanar reconstructions and 3-D m aximum intensity projection reconstructed images were performed. The images were reviewed on a PACS workstation. The total exam CTDI equals 24.22 mGy, and the total exam DLP equals 865.07 mGy-cm. One or more of the following dose reduction techniques were used: automated exposure control, adjust ment of the mA and/or kV according to patient size, or use of iterative reconstruction technique. COMPARISON: 02/15/2016 FINDINGS: Cervical spine screw plate is partially seen. Slight dependent areas of atelectasis as well as small nonspecific ground-glass opacities throughout the lung galeano bilaterally. No large focal area of i nfiltrate. Mild cardiomegaly. No pleural or pericardial effusion is seen. No hilar or mediastinal ad enopathy. Slightly distended azygos vein. No contrast reflux into the IVC is seen. No definite pulm onary embolus or aortic dissection. Slight coronary artery calcification. Small probable splenic cys t. Probable hepatic steatosis. Degenerative change of the spine. IMPRESSION: No evidence for pulmonary embolus or aortic dissection. Cardiomegaly and scattered small areas of n onspecific ground-glass opacity which could be due to a degree of mild edema. Slightly distended azy gos vein also suggests a degree of mild congestion. Slight coronary artery calcification.. RPTAT: HLBE Physician [place] Date Time Electronically viewed and signed by Josephine Davidson Physician on 06/18/2017 03:05 MARIKA/
[2017-06-18] MEDS: PANTOPRAZOLE (EC) 40 MG TAB PO SCH (05:57)
[2017-06-18] MEDS: INSULIN ASPART [NOVOLOG] 3 ML PEN SC SCH ×3 (07:51→17:28)
[2017-06-18] MEDS: GABAPENTIN 300 MG CAP PO SCH ×2 (08:58→13:29)
[2017-06-18] MEDS: HYDROCHLOROTHIAZIDE 25 MG TAB PO SCH (08:59)
[2017-06-18] MEDS: LISINOPRIL 20 MG TAB PO SCH (09:00)
[2017-06-18] MEDS: ASPIRIN 81 MG TAB PO SCH (09:00)
[2017-06-18] MEDS: ENOXAPARIN 30 MG/0.3 ML SYG SC SCH (09:00)
[2017-06-18] MEDS: CHOLECALCIFEROL 1,000 UNIT TAB PO SCH (09:00)
[2017-06-18] MEDS: AMLODIPINE 10 MG TAB PO SCH (09:01)
[2017-06-18] MEDS: LINAGLIPTIN 5 MG TABLET PO SCH (09:01)
[2017-06-18] MEDS: FERROUS SULFATE (EC) 325 MG TAB PO SCH (09:01)
[2017-06-18] MEDS: SALMETEROL/FLUTICASONE 250/50 INHA INH SCH (09:02)
[2017-06-18] MEDS ORDERED: FUROSEMIDE 20 MG INJ IV ONE (09:30)
--- NOTE | 2017-06-18 09:32 | PDOCDIS ---
Discharge Instructions HOME CARE INSTRUCTIONS: Special Diet: low fat, low cholestero; ACTIVITY: Activity Restrictions: Slowly Increase Activity FOLLOW UP/APPOINTMENTS Follow-up Plan follow up with PCP within 1 week Follow up with Cardiology as outpatient as needed MERCED PALMER Jun 18, 2017 09:32
[2017-06-18 11:57] LABS: BASOPHIL # 0.1 10^3/ul (0.0-0.1); BASOPHILS % 0.4 % (0.0-2.0); EOSINOPHILS # 0.7 10^3/ul (0.0-0.5); EOSINOPHILS % 4.7 % (0.0-7.0); HEMATOCRIT 31.2 % (37.0-47.0); HEMOGLOBIN 9.8 g/dl (12.0-16.0); LYMPHOCYTES # 1.4 10^3/ul (0.8-2.9); LYMPHOCYTES % 9.6 % (15.0-51.0); MEAN CORPUSCULAR HEMOGLOBIN 26.2 pg (29.0-33.0); MEAN CORPUSCULAR HGB CONC 31.4 g/dl (32.0-37.0); MEAN CORPUSCULAR VOLUME 83.4 fl (82.0-101.0); MEAN PLATELET VOLUME 9.1 fl (7.4-10.4); MONOCYTE # 0.7 10^3/ul (0.3-0.9); NEUTROPHIL # 11.3 10^3/ul (1.6-7.5); NEUTROPHILS % 79.7 % (39.0-77.0); PLATELET COUNT 248 10^3/UL (140-415); RED BLOOD COUNT 3.74 10^6/ul (4.20-5.40); WHITE BLOOD COUNT 14.1 10^3/ul (4.8-10.8)
[2017-06-18 12:26] LABS: MAGNESIUM 1.5 mg/dl (1.7-2.5); PHOSPHORUS 4.2 mg/dl (2.5-4.9)
[2017-06-18 12:27] LABS: CALCIUM 8.5 mg/dl (8.4-10.2); CREATININE 0.97 mg/dl (0.44-1.00); POTASSIUM 4.3 mmol/L (3.5-5.1)
--- NOTE | 2017-06-18 15:31 | PN ---
Date/Time of Note Date/Time of Note DATE: 06/18/17 TIME: 15:27 Assessment/Plan VTE Prophylaxis VTE Prophylaxis Intervention: LMWH Lines/Catheters IV C[facility]ter Type [facility]from [facility] [place] Assessment/Plan Assessment/Plan 52 yo woman with: 1. Atypical chest pain, presented with left chest pain that is largely reproduced with palpation of the left chest wall. Elevated D dimer, CTA chest negative for PE or Dissection Continue symptomatic treatment of pain Patient has been to multiple hospitals for similar complaints, No need for further cardiac work up 2. Chronic pain and reported right tib/fib fracture 3 months ago, patient was on Dilaudid po prn at one point ... Trial of NSAIDs and [place] prn RLE XR showing well-healing nondisplaced fracture, no new fractures. 3. Type 2 diabetes, on Januvia and Lantus, continue current meds, SSI as needed 4. Hypochromic, microcytic anemia, chronic and FOB negative, status post 2 units packed red blood cells overnight and also Lasix given this morning. Hemoglobin up to 9.8. Based on iron panel, patient does have iron deficiency anemia, she has been put on iron supplement. She will need a comprehensive anemia workup as an outpatient. No signs of acute bleeding currently. 5. Hypertension: continue home meds 6. Hyperlipidemia: on Fish oil 7. Morbid Obesity Prophylaxis: Lovenox for DVT ppx and continue PPI for GI ppx Disposition: D/c SNF today for PT, when bed available. So far she has been a difficult placement. Subjective 24 Hr Interval Summary Free Text/Dictation Patient remained stable, she has atypical chest pain, noncardiac. She was transfused 2 packed red blood cells for microcytic anemia with negative fecal occult blood. She will need referral to GI as an outpatient anemia workup. She is awaiting transfer to senior care facility primarily for physical therapy Repeat right lower extremity x-ray shows well healing nondisplaced fracture. Exam/Review of Systems Vital Signs Vitals Vital Signs Date Time Temp Pulse Resp B/P Pulse Ox O2 Delivery O2 Flow Rate FiO2 06/18/17 12:41 98.4 79 19 148/77 98 06/18/17 07:45 Nasal Cannula 2.0 Intake and Output 06/17/17 06/17/17 06/18/17 15:00 23:00 07:00 Intake Total 1500 ml 950 ml Balance 1500 ml 950 ml Exam Constitutional: alert, obese (Morbid), oriented, well developed Respiratory: clear to auscultation, normal air movement Cardiovascular: nl pulses, regular rate and rhythm Gastrointestinal: non-tender, soft Musculoskeletal: nl extremities to inspection Extremities: normal pulses, other (No edema, clubbing or cyanosis) Neurological: CONTOUR SANDER II-XII intact, nl mental status, nl speech, nl strength Results Result Diagram: 06/18/17 1113 06/18/17 1113 Results 24 hrs Laboratory Tests Test 06/17/17 17:03 06/17/17 17:33 06/17/17 19:00 06/17/17 21:33 Bedside Glucose 179 212 Hemoglobin 7.5 L Hematocrit 24.6 L Iron Level 27 L Total Iron Binding Capacity 297 Percent Iron Saturation 9 L Ferritin 42.7 Vitamin B12 Level 464 Folate 12.2 Test 06/18/17 02:18 06/18/17 07:50 06/18/17 11:13 06/18/17 11:48 Bedside Glucose 167 126 196 White Blood Count 14.1 #H Red Blood Count 3.74 #L Hemoglobin 9.8 #L Hematocrit 31.2 #L Mean Corpuscular Volume 83.4 Mean Corpuscular Hemoglobin 26.2 L Mean Corpuscular Hemoglobin Concent 31.4 L Red Cell Distribution Width 16.0 H Platelet Count 248 Mean Platelet Volume 9.1 Neutrophils % 79.7 H Lymphocytes % 9.6 L Monocytes % 5.0 Eosinophils % 4.7 Basophils % 0.4 Nucleated Red Blood Cells % 0.0 Neutrophils # 11.3 H Lymphocytes # 1.4 Monocytes # 0.7 Eosinophils # 0.7 H Basophils # 0.1 Nucleated Red Blood Cells # 0.0 Sodium Level 137 Potassium Level 4.3 Chloride Level 99 Carbon Dioxide Level 27 Anion Gap 15 Blood Urea Nitrogen 11 Creatinine 0.97 Glucose Level 172 Calcium Level 8.5 Phosphorus Level 4.2 Magnesium Level 1.5 L Medications Medications Current Medications Amlodipine Besylate (Norvasc) 10 mg DAILY PO Last administered on 06/18/17 09 :01; Admin Dose 10 MG; Start 06/16/17 at 09:00 Cholecalciferol (Vitamin D) 1,000 unit DAILY PO Last administered on 09:00; Admin Dose 1,000 UNIT; Start 06/16/17 at 09:00 Enoxaparin Sodium (Lovenox) 30 mg DAILY SC Last administered on 06/18/17 09: 00; Admin Dose 30 MG; Start 06/16/17 at 09:00 Gabapentin (Neurontin) 900 mg TID PO Last administered on 06/18/17 13:29; Admin Dose 900 MG; Start 06/16/17 at 09:00 Hydrochlorothiazide (Hydrochlorothiazide) 25 mg DAILY PO Last administered on 06/18/17 08:59; Admin Dose 25 MG; Start 06/16/17 at 09:00 Insulin Glargine (Lantus) 15 unit QHS SC Last administered on 06/17/17 21:39 ; Admin Dose 15 UNIT; Start 06/16/17 at 21:00 Lisinopril (Zestril) 40 mg DAILY PO Last administered on 06/18/17 09:00; Admin Dose 40 MG; Start 06/16/17 at 09:00 Meclizine HCl (Antivert) 25 mg BID PRN PO DIZZINESS; Start 06/16/17 at 01:30 Pantoprazole (Protonix Tab) 40 mg DAILY@06 PO Last administered on 06/18/17 05:57; Admin Dose 40 MG; Start 06/16/17 at 06:00 Salmeterol Xinafoate/ Fluticasone (Advair 250/50 Diskus) 1 inh BID INH Last administered on 06/18/17 09:02; Admin Dose 1 INH; Start 06/16/17 at 01:30 Zolpidem Tartrate (Ambien) 10 mg QHS PRN PO INSOMNIA Last administered on 06/17 23:18; Admin Dose 10 MG; Start 06/16/17 at 01:30 Linagliptin (Tradjenta) 5 mg DAILY PO Last administered on 06/18/17 09:01; Admin Dose 5 MG; Start 06/16/17 at 09:00 Miscellaneous Information 1 ea NOTE XX ; Start 06/16/17 at 02:30 Glucose (Glutose) 15 gm Q15M PRN PO DECREASED GLUCOSE; Start 06/16/17 at 02:30 Glucose (Glutose) 22.5 gm Q15M PRN PO DECREASED GLUCOSE; Start 06/16/17 at 02: 30 Dextrose (D50w Syringe) 25 ml Q15M PRN IV DECREASED GLUCOSE; Start 06/16/17 at 02:30 Dextrose (D50w Syringe) 50 ml Q15M PRN IV DECREASED GLUCOSE; Start 06/16/17 at 02:30 Glucagon (Glucagen) 1 mg Q15M PRN IM DECREASED GLUCOSE; Start 06/16/17 at 02: 30 Glucose (Glutose) 15 gm Q15M PRN BUCCAL DECREASED GLUCOSE; Start 06/16/17 at 02:30 Lorazepam (Ativan) 0.5 mg Q8H PRN PO ANXIETY Last administered on 06/18/17 01 :24; Admin Dose 0.5 MG; Start 06/16/17 at 01:30 Ondansetron HCl (Zofran Tab) 4 mg Q6H PRN PO NAUSEA AND/OR VOMITING; Start at 01:30 Aspirin (Aspirin) 81 mg DAILY PO Last administered on 06/18/17 09:00; Admin Dose 81 MG; Start 06/16/17 at 09:00 Docusate Sodium (Colace) 100 mg Q12H PRN PO CONSTIPATION; Start 06/16/17 at 01 :30 Ketorolac Tromethamine (Toradol) 30 mg Q6H PRN IV PAIN Last administered on 13:29; Admin Dose 30 MG; Start 06/16/17 at 15:00; Stop 06/19/17 at 14: 59 Acetaminophen/ Hydrocodone Bitart ([place] (325)) 1 tab Q4H PRN PO PAIN Last administered on 06/17/17 23:19; Admin Dose 1 TAB; Start 06/17/17 at 18:30 Nitroglycerin (Nitroglycerin (Sl Tab) 0.4 Mg) 1 tab Q5M PRN SL ANGINA; Start 06/17/17 at 20:00 Ferrous Sulfate (Ferrous Sulfate (Ec)) 325 mg BID PO Last administered on 06/18 09:01; Admin Dose 325 MG; Start 06/17/17 at 21:00 Diagnostic Test (Pha) (Accu-Chek) 1 ea 02 XX ; Start 06/18/17 at 02:00 MERCED PALMER Jun 18, 2017 15:31
== END 2017-06-18 19:42 | DRG 313 ==
LOC: E/R 20:59 → MS4 23:44 → OBSVTOIN 06-18 09:25
PROVIDERS: ADMIT Internal Medicine; ATTEND Internal Medicine
DX: R07.89 Other chest pain (principal); I11.0 Hypertensive heart disease with heart failure; Z68.43 Body mass index [BMI] 50.0-59.9, adult; I50.30 Unspecified diastolic (congestive) heart failure; D50.9 Iron deficiency anemia, unspecified; E11.9 Type 2 diabetes mellitus without complications; E28.2 Polycystic ovarian syndrome; E78.5 Hyperlipidemia, unspecified; S82.201D Unspecified fracture of shaft of right tibia, subsequent encounter for closed fracture with routine healing; E66.01 Morbid (severe) obesity due to excess calories; S82.401D Unspecified fracture of shaft of right fibula, subsequent encounter for closed fracture with routine healing; Z79.4 Long term (current) use of insulin; G89.29 Other chronic pain
CPT/HCPCS: 36430; 71010; 71275; 73590; 80048; 80053; 80061; 82270; 82550; 82553; 82607; 82728; 82746; 82962; 83540; 83735; 83880; 84100; 84443; 84484; 85014; 85018; 85025; 85378; 85651; 86850; 86900; 86901; 86920; 90686; 93005; 96374; 97161; G0378; J1940; J1650; J1815; J1885; J2405; J7030; J7040; P9016; Q9967

== ENCOUNTER 2017-07-05 20:11 | Inpatient (IN) | payer OTHER ==
[~2017-07-05] VITALS: Ht 154.9 cm; Wt 143.0 kg
[2017-07-05] MEDS ORDERED: KETOROLAC 30 MG INJ IM STA (20:36)
--- NOTE | 2017-07-05 20:43 | ERD ---
ER Documentation Chief Complaint Chief Complaint CP and DAHL x 2 hrs after fell in [place] 3 hrs ago, hx of same. from facility HPI 52-year-old woman here requesting placement of a different fpc facility. She was brought in by EMS from group home under the pretense of chest pain which she has on a chronic regular almost daily basis. She was just seen and evaluated at this hospital and admitted for chest pain, she was ruled out for acute coronary syndrome and a CT angiogram of the chest was negative for aortic issues or pulmonary embolism. She has been using Dilaudid and lorazepam at home at regular intervals and is requesting the same here in the ED. She denies fevers or chills, no cough, no loss of consciousness, no headache or blurry vision. Her chest pain is sharp, nonexertional nonradiating. She states she wants to go back to the nursing facility in [place], and dislikes her current living situation. She denies suicidal homicidal ideation. ROS All systems reviewed and are negative except as per history of present illness. Medications Home Meds Active Scripts Pantoprazole* (Pantoprazole*) 40 Mg Tablet.dr, 40 MG PO DAILY@06 for 30 Days Prov:DELMI JOSEPH NP 02/20/16 Insulin Glargine* (Lantus*) 100 Unit/Ml Soln, 15 UNIT SC QHS for 30 Days Prov:DELMI JOSEPH NP 02/20/16 Enoxaparin Sodium* (Enoxaparin Sodium*) 30 Mg/0.3 Ml Syringe, 30 MG SC DAILY for 30 Days Prov:DELMI JOSEPH NP 02/20/16 Insulin Aspart* (Novolog Insulin Pen*) 100 Unit/Ml Soln, 0 UNIT SC WITH MEALS BEDTIME for 30 Days Prov:PATRICIA JUARES 02/17/16 Albuterol Sulfate* (Ventolin HFA*) 18 Gm Hfa.aer.ad, 2 PUFF INHALATION Q4H, #1 INHALER Prov:GUICHO SHEIKH 02/15/16 Reported Medications Salmeterol Xinaf/Fluticasone* (Advair*) 250-50 Diskus Inhaler, 1 INH INHALATION BID, #1 INHALER 02/15/16 Lorazepam* (Ativan*) 2 Mg Tablet, 4 MG PO HS Y for SIZUR, #60 TAB 02/15/16 Zolpidem Tartrate* (Zolpidem Tartrate*) 10 Mg Tablet, 10 MG PO QHS Y for INSOMNIA, #30 TAB 02/15/16 Hydrochlorothiazide* (Hydrochlorothiazide*) 25 Mg Tab, 25 MG PO DAILY, #30 TAB 02/15/16 Fish Oil* (Fish Oil*) 1,000 Mg Cap, 3000 MG PO DAILY, CAP 02/15/16 Gabapentin* (Gabapentin*) 300 Mg Capsule, 900 MG PO TID, #270 CAP 02/14/16 Tamsulosin Hcl* (Tamsulosin Hcl*) 0.4 Mg Cap.er.24h, 0.4 MG PO DAILY, CAP 02/14/16 Lisinopril* (Lisinopril*) 40 Mg Tablet, 40 MG PO DAILY, #30 TAB 02/14/16 Sitagliptin* (Januvia*) 50 Mg Tablet, 50 MG PO DAILY, #30 TAB 02/14/16 Meclizine Hcl* (Meclizine Hcl*) 25 Mg Tablet, 25 MG PO BID Y for DIZZINESS, TAB 02/14/16 Omeprazole* (Omeprazole*) 20 Mg Capsule.dr, 20 MG PO DAILY, #30 CAP 02/14/16 Amlodipine Besylate* (Amlodipine Besylate*) 10 Mg Tablet, 10 MG PO DAILY, #30 TAB 02/14/16 Cholecalciferol (Vitamin D3) 1,000 Unit Capsule, 1000 UNIT PO DAILY, CAP 02/14/16 Hydromorphone Hcl* (Hydromorphone Hcl*) 2 Mg Tablet, 2 MG PO BID Y for PAIN, TAB 02/14/16 Allergies Allergies: Coded Allergies: diphenhydramine (Unverified Allergy, Mild, 02/17/16) PMhx/Soc Chronic pain syndrome, opioid and benzodiazepine dependence, depression, anxiety , anemia, hypertension, morbid obesity, hyperlipidemia, recent CT angiogram of the chest which ruled out aortic issues and pulmonary embolism History of Surgery: Yes (Cervical Surg,Cholecystectomy,Ovarian Cyst Removal) Anesthesia Reaction: No Hx Neurological Disorder: Yes (Neuropathy) Hx Respiratory Disorders: Yes (Sleep Apnea) Hx Cardiac Disorders: Yes (HTN) Hx Psychiatric Problems: No Hx Miscellaneous Medical Probl: Yes (hx R tib/fib fracture 3 mos ago) Hx Alcohol Use: Yes (OCCASIONAL) Hx Substance Use: No Hx Tobacco Use: No Smoking Status: Never smoker FmHx Family History: No diabetes Physical Exam Vitals Vital Signs Date Time Temp Pulse Resp B/P Pulse Ox O2 Delivery O2 Flow Rate FiO2 07/05/17 20:18 98.9 97 20 143/69 99 Physical Exam GENERAL: Well-developed, morbidly obese, well-hydrated, in no apparent distress , looks nontoxic in appearance HEENT: Moist mucous membranes, pink conjunctiva, no cervical spine tenderness or step-off deformities, no goiter, no jaundice or icterus, extraocular movements intact without pain. No submandibular induration, and no pharyngeal erythema NEURO: Alert and oriented 3, cranial nerves II through XII intact bilaterally, pupils equal round reactive to light, no focal deficits or facial asymmetry, sensation intact distally Strength 5/5 in upper and lower extremities bilaterally CARDIAC: Regular rate and rhythm, no murmurs rubs or gallops LUNGS: Clear bilaterally no wheezing crackles or stridor ABDOMEN: Soft nontender, no guarding, no rigidity, no rebound, no psoas sign no obturator sign. Normoactive bowel sounds SKIN: Warm and dry to touch, no abrasions, contusions, or hematomas, no lacerations, no ecchymosis, no target lesions, and without ulcers EXTREMITIES: No clubbing cyanosis or edema, calves are bilaterally symmetrical, no Homans sign, no popliteal cord sign. Distal pulses equal and bilateral PSYCH: Depressed affect Results 24 hrs Laboratory Tests Test 07/05/17 20:44 Troponin I < 0.012ng/ml Current Medications Medications (Trade) Dose Ordered Sig/Kaz Route PRN Reason Start Time Stop Time Status Last Admin Dose Admin Ketorolac Tromethamine (Toradol) 30 mg ONCE STAT IM 07/05/17 20:36 07/05/17 20:38 DC 07/05/17 21:04 Procedures/MDM IV line was established patient was placed on body builder apprentice rhythm strip revealed a sinus rhythm at about 80 bpm with upright P and T waves. Patient was afebrile EKG performed, read by me: 89 bpm, normal sinus rhythm, normal axis, no acute ST segment changes, narrow QRS complex, with good R-wave progression in precordial leads. I administered Toradol 30 mg intramuscular injection 1 Troponin was negative. I reviewed her past medical history, recent imaging studies, and recent inpatient and ED workups. I consulted her insurance directed physician bonding machine setter Dr. Davidson regarding her presentation, symptomatology, and her overall placement issues. He kindly agreed to see the patient in the emergency department to help facilitate management and proper placement. Differential diagnoses considered, included but not limited to acute coronary syndrome, pulmonary embolism, aortic dissection, abdominal aortic aneurysm, sepsis, stroke, meningitis, encephalitis, pneumonia, appendicitis, cholecystitis , bowel obstruction, pyelonephritis, nephrolithiasis, cystitis, as well as metabolic, hematologic, and electrolyte abnormalities. As well as abscess, cellulitis, fractures, and dislocations. Patient feels much better at this time, and vital signs are normal, symptoms have improved. I did give strict instructions to return to the ED if symptoms continue or worsen, patient will otherwise follow-up with primary care physician. Patient understood instructions and agreed to plan. Disclaimer: Inadvertent spelling and grammatical errors are likely due to EHR/ dictation software use and do not reflect on the overall quality of patient care. Also, please note that the electronic time recorded on this note does not necessarily reflect the actual time of the patient encounter. Departure Diagnosis: Primary Impression: Morbid obesity Additional Impression: Chest pain Chest pain type: unspecified Qualified Code: R07.9 - Chest pain, unspecified type Condition: JUSTO Jarrell MD Jul 05, 2017 20:43
--- NOTE | 2017-07-05 23:56 | HP ---
Date/Time of Note Date/Time of Note DATE: 07/05/17 TIME: 23:37 Assessment/Plan VTE Prophylaxis VTE Prophylaxis Intervention: LMWH Assessment/Plan Assessment/Plan [facility] 1. 52yo woman with previous presentations for chest pain, most recently 19 days ago, presented tonight with left chest pain that is largely reproduced with palpation of the left chest wall. 2. She is anxious about returning to the current board & care facility, which she says is unsafe for her from a falling standpoint. 3. H/o polycystic ovary disease 4. Chronic pain 5. Type 2 diabetes, on linagliptin and Lantus insulin 6. Hypochromic, microcytic anemia. 7. History of elevated ESR (70mm/hr) and D-dimer, but without evidence for DVT or PE. * Place under telemetry observation * Toradol 10mg PO q6h PRN chest wall pain * Serial troponins overnight * Lovenox for DVT prophylaxis * Famotidine 20mg PO BID for GI protection * Full-code * advertising layout worker to explore current family and home situation tomorrow. Javid Davidson MD PhD [phone] HPI/ROS Admit Date/Time Admit Date/Time Hx of Present Illness 52yo woman very familiar to me from similar chest pain presentation three weeks ago, with admission 06/16/17. Diagnosed with costochondritis. Now returned with similar chest pain by ambulance from her [facility], where she said she had fallen several times due to knee pain. She said she had struck her head and didn't feel safe. ROS No headache, visual change, dyspnea, change in bowel habitus, dysuria or urethritis symptoms. PMH/Family/Social Past Medical History Medical History: diabetes, high cholesterol, hypertension Past Surgical History Past Surgical Hx: cholecystectomy, other (Cervical spine, ovarian cyst) Social History Smoking Status: Never smoker Exam/Review of Systems Vital Signs Vitals Vital Signs Date Time Temp Pulse Resp B/P Pulse Ox O2 Delivery O2 Flow Rate FiO2 07/05/17 20:18 98.9 97 20 143/69 99 Exam Exam Constitutional: alert, mildly anxious, androgen excess, well developed Psych: anxiety, confusion, depression, sometimes tearful. Head: atraumatic, normocephalic Eyes: EOMI, PERRL, nl conjunctiva ENMT: mucosa pink and moist Neck: non-tender, supple, No bruits, No masses, No nuchal rigidity, No thyromegaly Respiratory: clear to auscultation, normal air movement. Moderate focal left upper parasternal tenderness, like before, No congested cough, No crackles/rales , No diminished breath sounds, No intercostal retraction, No labored breathing, No wheezing Cardiovascular: nl pulses, other, regular rate and rhythm, No bruits, No diastolic murmur, No edema, No gallop, No irregular rhythm, No jugular venous distention (JVD), No murmurs/extra sounds, No rub, No systolic murmur Gastrointestinal: bowel sounds, nl liver, spleen, non-tender, soft, No ascites , No distended, No firm, No hepatomegaly, No mass, No rebound or guarding, No splenomegaly, No tender Genitourinary - Female: No CVA tenderness Musculoskeletal: muscle tone, nl extremities to inspection, range of motion, No joint tenderness, No muscle weakness, No nl gait and stance, No spine non- tender, No swelling Extremities: normal pulses, No calf tenderness, No clubbing, No cyanosis, No edema, No palpable cord, No pitting pedal edema, No tenderness Neurological: LOG RIDER II-XII intact, DTR's symmetric, confused, nl mental status, nl speech, nl strength Skin: nl turgor, No diaphoresis, No ecchymosis, No laceration, No puncture, No rash or lesions Lymph: nl lymph nodes ANNETTE DAVIDSON M.D. Jul 05, 2017 23:51
[2017-07-06] VITALS (12 sets, daily range): BP systolic 106–139; BP diastolic 48–63; PULSE 74–89; RESP 15–18; Ht 154.9 cm; Wt 143.0 kg
[2017-07-06] MEDS ORDERED: GLUCOSE GEL 15 GRAM TUBE PO PRN ×2
[2017-07-06] MEDS ORDERED: GLUCAGON 1 MG INJ IM PRN
[2017-07-06] MEDS ORDERED: GLUCOSE GEL 15 GRAM TUBE BUCCAL PRN
[2017-07-06] MEDS ORDERED: ZOLPIDEM 5 MG TAB PO PRN
[2017-07-06] MEDS ORDERED: DEXTROSE 50% 50 ML SYRINGE IV PRN ×2
[2017-07-06] MEDS ORDERED: NACL 0.9% 3 ML SYG IV SCH (00:30)
[2017-07-06] MEDS ORDERED: MECLIZINE 25 MG TAB PO PRN (00:30)
[2017-07-06] MEDS ORDERED: ONDANSETRON 4 MG TAB PO PRN (00:30)
[2017-07-06] MEDS: SALMETEROL/FLUTICASONE 250/50 INHA INH SCH ×3 (01:37→21:05)
[2017-07-06] MEDS: LORAZEPAM 1 MG TAB PO PRN (01:38)
[2017-07-06] MEDS: ALBUTEROL HFA 8 GM INHALER INH SCH ×6 (01:38→21:04)
[2017-07-06] MEDS: KETOROLAC 30 MG INJ IV PRN ×3 (03:53→23:20)
[2017-07-06] MEDS: PANTOPRAZOLE (EC) 40 MG TAB PO SCH (06:00)
[2017-07-06] MEDS: INSULIN ASPART [NOVOLOG] 3 ML PEN SC SCH ×3 (08:06→17:13)
[2017-07-06] MEDS: ENOXAPARIN 30 MG/0.3 ML SYG SC SCH (09:25)
[2017-07-06] MEDS: HYDROCHLOROTHIAZIDE 25 MG TAB PO SCH (09:26)
[2017-07-06] MEDS: GABAPENTIN 300 MG CAP PO SCH ×3 (09:26→21:04)
[2017-07-06] MEDS: LINAGLIPTIN 5 MG TABLET PO SCH (09:26)
[2017-07-06] MEDS: LISINOPRIL 20 MG TAB PO SCH (09:26)
[2017-07-06] MEDS: CHOLECALCIFEROL 1,000 UNIT TAB PO SCH (09:26)
[2017-07-06] MEDS: AMLODIPINE 10 MG TAB PO SCH (09:29)
[2017-07-06] MEDS ORDERED: INSULIN GLARGINE [LANtus] 3 ML PEN SC SCH (21:00)
[2017-07-06] MEDS ORDERED: TAMSULOSIN (SR) 0.4 MG CAP PO SCH (21:00)
[2017-07-06] MEDS: ALBUTEROL/IPRATROPIUM (NEB) 3 ML AMP HHN SCH (21:37)
[2017-07-07] VITALS (11 sets, daily range): BP systolic 111–126; BP diastolic 57–60; PULSE 73–97; RESP 15
[2017-07-07] MEDS: ALBUTEROL/IPRATROPIUM (NEB) 3 ML AMP HHN SCH ×4 (01:12→12:42)
[2017-07-07] MEDS: LORAZEPAM 1 MG TAB PO PRN (01:27)
[2017-07-07] MEDS: PANTOPRAZOLE (EC) 40 MG TAB PO SCH (06:00)
[2017-07-07] MEDS: INSULIN ASPART [NOVOLOG] 3 ML PEN SC SCH ×2 (07:53→11:55)
[2017-07-07] MEDS: GABAPENTIN 300 MG CAP PO SCH ×2 (08:54→12:59)
[2017-07-07] MEDS: CHOLECALCIFEROL 1,000 UNIT TAB PO SCH (08:54)
[2017-07-07] MEDS: HYDROCHLOROTHIAZIDE 25 MG TAB PO SCH (08:54)
[2017-07-07] MEDS: LINAGLIPTIN 5 MG TABLET PO SCH (08:54)
[2017-07-07] MEDS: SALMETEROL/FLUTICASONE 250/50 INHA INH SCH (08:55)
[2017-07-07] MEDS: AMLODIPINE 10 MG TAB PO SCH (08:55)
[2017-07-07] MEDS: LISINOPRIL 20 MG TAB PO SCH (08:55)
[2017-07-07] MEDS: ENOXAPARIN 30 MG/0.3 ML SYG SC SCH (08:57)
--- NOTE | 2017-07-07 12:04 | PDOCDIS ---
Discharge Instructions DIAGNOSIS Discharge Diagnosis Costochondritis CONDITION Patient Condition: Good HOME CARE INSTRUCTIONS: Special Diet: DIABETIC DIET. ACTIVITY: Activity Restrictions: Slowly Increase Activity Bathing Restrictions: Sponge Bath FOLLOW UP/APPOINTMENTS Follow-up Plan Follow-up with PCP after SNF stay. SCHOOL/WORK RELEASE May return to School/Work with: No Restrictions RHONA GE MD Jul 07, 2017 12:04
[2017-07-07] MEDS: KETOROLAC 30 MG INJ IV PRN (13:00)
--- NOTE | 2017-07-07 18:43 | TS ---
DATE OF ADMISSION: 07/05/2017 DATE OF DISCHARGE: 07/07/2017 DISCHARGE DIAGNOSES: 1. Chest pain secondary to costochondritis. 2. Pickwickian syndrome. 3. Morbid obesity. 4. Polycystic ovarian syndrome. 5. Acute kidney injury, now resolved. 6. Congestive heart failure exacerbation, resolved. 7. Type 2 diabetes mellitus with hyperglycemia (poorly controlled). HOSPITAL COURSE: The patient is a 52-year-old female with multiple medical problems who presented t [facility] ER complaining of chest pain. Her chest pain is clearly pleuritic in nature a nd reproducible by palpation. The patient stated that she has had anxiety which triggered her chest pain because she was recently staying at a [facility] care facility where she felt she was "mistreat ed." She stated that the residents and staff left her in the corner and did not tend to her. She w as monitored overnight and all of her examinations, laboratory tests and blood tests were essentiall y within normal limits. She was given intravenous fluid for mild acute kidney injury, but she was f eeling well at the time of discharge and her creatinine returned to her baseline. She was transferr ed here by [facility] for further PT and OT CONDITION ON DISCHARGE: Stable. DISPOSITION: Discharge to [place]. DISCHARGE MEDICATIONS: 1. Ventolin 2 puffs q.4 hours p.r.n. shortness of breath. 2. Amlodipine 10 mg once daily. 3. Vitamin D3 1000 unit capsule once daily. 4. Enoxaparin 30 mg once daily subQ. 5. Fish oil 3000 mg once daily. 6. Gabapentin 300 mg 3 times a day. 7. Hydrochlorothiazide 25 mg once daily. 8. Dilaudid 2 mg p.o. b.i.d. p.r.n. pain. 9. Lantus 15 units at bedtime. 10. Lisinopril 40 mg once daily. 11. Sliding scale insulin before each meal. 12. Lorazepam 4 mg p.o. at bedtime p.r.n. seizures. 13. Meclizine 25 mg twice daily p.r.n. dizziness. 14. Omeprazole 20 mg once daily. 15. Advair 250/50 one puff twice daily. 16. Januvia 50 mg once daily. 17. Flomax 0.4 mg once daily. 18. Ambien 10 mg p.o. at bedtime p.r.n. DISPOSITION: The patient is to be transferred to [facility] for further PT, OT. Dictated By: RHONA GE MD SH/NTS Conf#: [id number] DID#: [id number] CC: ANNETTE MONTES MD;*EndCC*
== END 2017-07-07 14:15 | DRG 292 ==
LOC: E/R 20:11 → MS4 23:35
PROVIDERS: ADMIT Internal Medicine; ATTEND Internal Medicine
DX: I50.9 Heart failure, unspecified (principal); N17.9 Acute kidney failure, unspecified; E66.2 Morbid (severe) obesity with alveolar hypoventilation; E11.65 Type 2 diabetes mellitus with hyperglycemia; Z68.43 Body mass index [BMI] 50.0-59.9, adult; M94.0 Chondrocostal junction syndrome [Tietze]; R07.9 Chest pain, unspecified; E66.01 Morbid (severe) obesity due to excess calories; E28.2 Polycystic ovarian syndrome; G89.29 Other chronic pain; D64.9 Anemia, unspecified; F32.9 Major depressive disorder, single episode, unspecified
CPT/HCPCS: 82962; 84484; 93005; 94640; 94660; 94664; 96372; 97163; J1650; J1815; J1885

== ENCOUNTER 2018-07-08 17:33 | Emergency (ER) | END 2018-07-08 22:40 | disposition home or self-care (01) ==